=== PATIENT | male | born 1990 | race African-American/Black ===

== ENCOUNTER 2023-06-25 16:25 | Emergency (ER) | payer SELFPAY ==
[~2023-06-25] VITALS: Ht 180.3 cm; Wt 170.5 kg
[2023-06-25 16:37] VITALS: TEMP 98.2
[2023-06-25 18:26] VITALS: BP 113/78; PULSE 71
== END 2023-06-25 18:27 | disposition home or self-care (01) ==
LOC: COL.ER 16:25
DX: I10 Essential (primary) hypertension (principal)